=== PATIENT | male | born 1975 | race Caucasian/White ===

== ENCOUNTER 2022-05-24 13:26 | Emergency (ER) | payer OTHER ==
[2022-05-24] MEDS ORDERED: Acetaminophen/oxyCODONE 325-10 MG Tab PO STA (14:09)
[2022-05-24] MEDS ORDERED: HYDROmorphone 1 MG/ML Syringe IVPUSH STA (14:58)
[2022-05-24] MEDS ORDERED: Ketorolac 30 MG/ML SDV IVPUSH STA (16:03)
== END 2022-05-24 16:29 | disposition home or self-care (01) ==
LOC: MW.ED 13:26
DX: S82.61XA Displaced fracture of lateral malleolus of right fibula, initial encounter for closed fracture (principal); S90.02XA Contusion of left ankle, initial encounter; S90.01XA Contusion of right ankle, initial encounter; Z88.5 Allergy status to narcotic agent; X50.0XXA Overexertion from strenuous movement or load, initial encounter
CPT/HCPCS: 73080; 73590; 73610; 96374; 96375; 99284; A9270; J1170; J1885